=== PATIENT | female | born 2000 | race African-American/Black ===

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

== ENCOUNTER 2020-03-26 21:39 | Emergency (ER) | payer OTHER ==
[2020-03-26] MEDS ORDERED: ACETAMINOPHEN 325 MG TABLET PO ONE (21:46)
--- NOTE | 2020-03-26 21:48 | ER Document Report ---
ED Medical Screen (RME) - General Chief Complaint: OB Problem (<20wks) Stated Complaint: ABDOMINAL PAIN/6 WEEKS Time Seen by Provider: 03/26/20 21:43 Mode of Arrival: Ambulatory Information source: Patient Notes: HPI; 19-year-old female 1 states she is approximately 6 weeks presents to the emergency room complaining of abdominal cramping that started today. No nausea, no vomiting, no vaginal bleeding, no vaginal discharge. Has not had any OB care as of yet. Did not take any medications for her symptoms. PE: Alert and oriented x3. Lungs: Clear to auscultation without rales, rhonchi, wheezes. Heart: Regular rate rhythm without murmurs, rubs, gallops. Unable to do abdominal exam in triage. I have greeted and performed a rapid initial assessment of this patient. A comprehensive ED assessment and evaluation of the patient, analysis of test results and completion of the medical decision making process will be conducted by additional ED providers. I have specifically instructed the patient or family members with the patient to immediately return to any nursing staff should anything change in the patient's condition or with their chief complaint. TRAVEL OUTSIDE OF THE [place] IN LAST 30 DAYS: No - Related Data Allergies/Adverse Reactions: phenazopyridine [From Pyridium] Allergy (Verified 01/21/19 08:34) Home Medications: labatelol, iron, vitamins Past Medical History - Past Medical History Cardiac Medical History: Reports: Hx Hypertension Endocrine Medical History: Denies: Hx Diabetes Mellitus Type 1, Hx Diabetes Mellitus Type 2, Hx Hyperthyroidism, Hx Hypothyroidism Renal/ Medical History: Denies: Hx Ectopic , Hx End Stage Renal Disease, Hx Hemodialysis, Hx Kidney Stones, Hx Ovarian Cysts, Hx Peritoneal D ialysis, Hx Pelvic Inflammatory Disease Past Surgical History: Reports: Hx Myringotomy, Other - Cleft lip, cleft pallate surgery - Immunizations Immunizations up to date: Yes
[2020-03-26 22:38] LABS: ABSOLUTE BASOPHILS # (AUTO) 0.1 10^3/uL (0.0-0.2); ABSOLUTE EOSINOPHILS # (AUTO) 0.4 10^3/uL (0.0-0.6); ABSOLUTE LYMPHOCYTES (AUTO) 3.3 10^3/uL (0.5-4.7); ABSOLUTE NEUT (AUTO) 8.4 10^3/uL (1.7-8.2); BASOPHILS % (AUTO) 0.4 % (0-2); EOSINOPHILS % (AUTO) 3.1 % (0-6); HEMATOCRIT 41.3 % (36.0-47.0); HEMOGLOBIN 13.5 g/dL (12.0-15.5); LYMPHOCYTES % (AUTO) 25.4 % (13-45); MEAN CORPUSCULAR HEMOGLOBIN 23.6 pg (27.0-33.4); MEAN CORPUSCULAR HGB CONC 32.8 g/dL (32.0-36.0); MEAN CORPUSCULAR VOLUME 72 fl (80-97); MONOCYTES % (AUTO) 7.6 % (3-13); PLATELET COUNT 344 10^3/uL (150-450); RED BLOOD COUNT 5.73 10^6/uL (3.72-5.28); RED CELL DISTRIBUTION WIDTH 14.6 % (11.5-14.0); SEGMENTED NEUTROPHILS % (AUTO) 63.5 % (42-78); TOTAL CELLS COUNTED % (AUTO) 100 %; WHITE BLOOD COUNT 13.2 10^3/uL (4.0-10.5)
[2020-03-26 22:50] LABS: ALBUMIN 4.4 g/dL (3.7-5.6); ALKALINE PHOSPHATASE 94 U/L (50-135); ANION GAP 10 (5-19); ASPARTATE AMINO TRANSFERASE 20 U/L (5-30); BILIRUBIN,DIRECT 0.2 mg/dL (0.0-0.4); BILIRUBIN,TOTAL 0.3 mg/dL (0.2-1.3); BLOOD UREA NITROGEN 7 mg/dL (7-20); CALCIUM 9.3 mg/dL (8.4-10.2); CARBON DIOXIDE 23 mmol/L (22-30); CHLORIDE 104 mmol/L (98-107); GLUCOSE 113 mg/dL (75-110); TOTAL PROTEIN 7.7 g/dL (6.3-8.2)
[2020-03-26 23:06] LABS: APPEARANCE,URINE SLIGHTLY-CLOUDY; BILIRUBIN,URINE NEGATIVE (NEGATIVE); COLOR,URINE YELLOW; GLUCOSE, URINE NEGATIVE (NEGATIVE); KETONES,URINE NEGATIVE (NEGATIVE); LEUKOCYTE ESTERASE,URINE SMALL (NEGATIVE); NITRITE,URINE NEGATIVE (NEGATIVE); PROTEIN,URINE NEGATIVE (NEGATIVE); URINE SPECIFIC GRAVITY 1.018; UROBILINOGEN,URINE NEGATIVE mg/dL (<2.0)
--- NOTE | 2020-03-26 23:29 | RADIOLOGY REPORT (SQ) ---
EXAM DESCRIPTION: US TRANSVAGINAL COMPLETED DATE/TME: 03/26/2020 21:46 CLINICAL HISTORY: 19 years Female pain COMPARISON: None. TECHNIQUE: Transvaginal duplex imaging performed to evaluate the pelvis. FINDINGS: Cervix measures 2.7 cm and appears closed. Uterus measures 8.9 x 4.5 x 5.6 cm. Myometrium is mildly heterogeneous. Endometrium measures 1.6 cm. Right ovary measures 2.7 x 2.6 cm. Left ovary measures 3.1 x 1.6 cm. No IUP is noted. Normal ovarian blood flow noted. IMPRESSION: Thickened endometrium without IUP. Findings are consistent with of uncertain location. Recommend follow-up in one week
--- NOTE | 2020-03-27 03:44 | ER Document Report ---
ED GI/ - General Chief Complaint: OB Problem (<20wks) Stated Complaint: ABDOMINAL PAIN/6 WEEKS Time Seen by Provider: 03/26/20 21:43 Primary Care Provider: GIOVANI FAY PA-C [Primary Care Provider] - Follow up as needed Mode of Arrival: Ambulatory Notes: Patient is a 19-year-old female, at approximately 6 weeks gestation by last menstrual period, that comes to the emergency department for chief complaint of intermittent lower abdominal cramping that started today. Patient denies injury, vaginal bleeding or discharge, dysuria, flank pain, and she denies any current abdominal pain. She denies vomiting. She denies any other complaints. She states she had a confirmation with [place] [employer] [place] but she has not had an ultrasound yet. Patient is on iron, started vitamins already, denies medical history otherwise. TRAVEL OUTSIDE OF THE [place] IN LAST 30 DAYS: No - Related Data Allergies/Adverse Reactions: phenazopyridine [From Pyridium] Allergy (Verified 01/21/19 08:34) Home Medications: labatelol, iron, vitamins Past Medical History - General Information source: Patient - Social History Smoking Status: Never Smoker Frequency of alcohol use: None Drug Abuse: None Lives with: Family Family History: Reviewed & Not Pertinent - Past Medical History Cardiac Medical History: Reports: Hx Hypertension Endocrine Medical History: Denies: Hx Diabetes Mellitus Type 1, Hx Diabetes Mellitus Type 2, Hx Hyperthyroidism, Hx Hypothyroidism Renal/ Medical History: Denies: Hx Ectopic , Hx End Stage Renal Disease, Hx Hemodialysis, Hx Kidney Stones, Hx Ovarian Cysts, Hx Peritoneal Dialysis, Hx Pelvic Inflammatory Disease Past Surgical History: Reports: Hx Myringotomy, Other - Cleft lip, cleft pallate surgery - Immunizations Immunizations up to date: Yes Review of Systems - Review of Systems Constitutional: No symptoms reported EENT: No symptoms reported Cardiovascular: No symptoms reported Respiratory: No symptoms reported Gastrointestinal: See HPI Genitourinary: See HPI Female Genitourinary: See HPI Musculoskeletal: No symptoms reported Skin: No symptoms reported Hematologic/Lymphatic: No symptoms reported Neurological/Psychological: No symptoms reported Physical Exam - Vital signs Vitals: Temp Pulse Resp BP Pulse Ox 99 F 99 H 16 139/88 H 98 03/26/20 21:49 03/26/20 21:49 03/26/20 21:49 03/26/20 21:49 03/26/20 21:49 - Notes Notes: GENERAL: Alert, interacts well. No acute distress. HEAD: Normocephalic, atraumatic. EYES: Pupils equal, round, and reactive to light. Extraocular movements intact. ENT: Oral mucosa moist, tongue midline. Oropharynx unremarkable. Airway patent. LUNGS: Clear to auscultation bilaterally, no wheezes, rales, or rhonchi. No respiratory distress. Non-tender chest wall. HEART: Regular rate and rhythm. No murmur ABDOMEN: Soft, non-tender. Non-distended. Bowel sounds present in all 4 quadrants. GENITOURINARY: Deferred EXTREMITIES: Moves all 4 extremities spontaneously. No edema, normal radial and dorsalis pedis pulses bilaterally. No cyanosis. BACK: no cervical, thoracic, lumbar midline tenderness. No saddle anesthesia, normal distal neurovascular exam. Moves all extremities in full range of motion. NEUROLOGICAL: Alert and oriented x3. Normal speech. Cranial nerves II through XII grossly intact. Strength 5/5 in all extremities. PSYCH: Normal affect, normal mood. SKIN: Warm, dry, normal turgor. No rashes or lesions noted. Course - Re-evaluation Re-evalutation: Patient is talkative, laughing, smiling, well-appearing. She has no complaints on my evaluation. Exam is unremarkable except for borderline tachycardia although her heart rate is approximately 90s on my evaluation. CBC, chemistry unremarkable, urinalysis shows borderline urinary tract infection, culture placed, patient will be covered especially because she is . Ultrasound shows no visualized intrauterine but patient has no bleeding, no pain now, and her hCG is only in the 700s, I would not expect visualization at this stage. Nonspecific. I discussed details at length, provided with copy of data, discussed close [employer] TECHNICIAN follow-up, discussed return precautions. Patient states appreciation and agreement. Stable and well- appearing at time of discharge. - Vital Signs Vital signs: Temp Pulse Resp BP Pulse Ox 98.3 F 107 H 16 140/83 H 100 03/27/20 04:37 03/27/20 04:37 03/27/20 04:37 03/27/20 04:37 03/27/20 04:37 - Laboratory Result Diagrams: 03/26/20 22:19 03/26/20 22:19 Laboratory results interpreted by me: 03/26/20 03/26/20 03/26/20 22:19 22:19 22:19 WBC 13.2 H RBC 5.73 H MCV 72 L MCH 23.6 L RDW 14.6 H Absolute Neuts (auto) 8.4 H Sodium 136.9 L Glucose 113 H Beta HCG, Quant 787.86 H Ur Leukocyte Esterase SMALL H Urine Ascorbic Acid 40 H Discharge - Discharge Clinical Impression: Lower abdominal pain, Abdominal cramping affecting Condition: Stable Disposition: HOME, SELF-CARE Additional Instructions: Based on your evaluation the is very early, this is too early to see in the uterus on your evaluation. Please follow-up with [employer] TECHNICIAN and have a recheck in 3 to 7 days for additional monitoring and management. Based on your urinalysis and evaluation we are covering you for suspected urinary tract infection. Take the antibiotics as prescribed to completion. Return if you worsen including severe worsening pain, vaginal bleeding, fever, or any other concerning symptoms. Prescriptions: Cephalexin Monohydrate [Keflex 500 mg Capsule] 500 mg PO BID 5 Days #10 capsule Forms: Treatment of Relative/Child Referrals: GIOVANI FAY PA-C [Primary Care Provider] - Follow up as needed
[2020-03-27 04:38] VITALS: BP 140/83
== END 2020-03-27 04:44 | disposition home or self-care (01) ==
LOC: ER 21:39
DX: O26.899 Other specified pregnancy related conditions, unspecified trimester (principal); R10.30 Lower abdominal pain, unspecified; O16.9 Unspecified maternal hypertension, unspecified trimester; Z3A.00 Weeks of gestation of pregnancy not specified; Z79.899 Other long term (current) drug therapy; Z88.6 Allergy status to analgesic agent
CPT/HCPCS: 36415; 76817; 80053; 81001; 84702; 85025; 87086; 87088; 93976; 99284

== ENCOUNTER 2020-05-03 21:09 | Emergency (ER) | payer OTHER ==
[2020-05-03 21:18] VITALS: BP 132/83
[2020-05-03] MEDS ORDERED: ACETAMINOPHEN 325 MG TABLET PO ONE (21:28)
--- NOTE | 2020-05-03 21:28 | ER Document Report ---
ED Medical Screen (RME) - General Chief Complaint: Abdominal Cramping Stated Complaint: 3 MONTHS CRAMPS Time Seen by Provider: 05/03/20 21:18 Primary Care Provider: GIOVANI FAY PA-C [Primary Care Provider] - Follow up as needed Mode of Arrival: Ambulatory Information source: Patient Notes: 20-year-old female presents to ED for cramping to the right pelvic area for the last 3 to 4 hours. She states that she is 3 months 1 para 0. She states that she has never had pain this bad on the right side of her pelvis. She states she did have a ultrasound at 6 weeks gestation. She states she does know she has a be positive blood type. Patient is alert oriented respirations regular nonlabored speaking in full sentences. We will get blood urine and ultrasound and have seen by another provider. I have greeted and performed a rapid initial assessment of this patient. A comprehensive ED assessment and evaluation of the patient, analysis of test results and completion of medical decision making process will be conducted by an additional ED providers. TRAVEL OUTSIDE OF THE [place] IN LAST 30 DAYS: No - Related Data Allergies/Adverse Reactions: phenazopyridine [From Pyridium] Allergy (Verified 05/03/20 21:18) Home Medications: PRE-NATALS Past Medical History - Social History Frequency of alcohol use: None Drug Abuse: None - Past Medical History Cardiac Medical History: Reports: Hx Hypertension Endocrine Medical History: Denies: Hx Diabetes Mellitus Type 1, Hx Diabetes Mellitus Type 2, Hx Hyperthyroidism, Hx Hypothyroidism Renal/ Medical History: Denies: Hx Ectopic , Hx End Stage Renal Disease, Hx Hemodialysis, Hx Kidney Stones, Hx Ovarian Cysts, Hx Peritoneal Dialysis, Hx Pelvic Inflammatory Disease Past Surgical History: Reports: Hx Myringotomy, Other - Cleft lip, cleft pallate surgery - Immunizations Immunizations up to date: Yes Physical Exam - Vital signs Vitals: Temp Pulse Resp BP Pulse Ox 98.1 F 95 17 132/83 H 98 05/03/20 21:15 05/03/20 21:15 05/03/20 21:15 05/03/20 21:15 05/03/20 21:15 Course - Vital Signs Vital signs: Temp Pulse Resp BP Pulse Ox 98.1 F 95 17 132/83 H 98 05/03/20 21:15 05/03/20 21:15 05/03/20 21:15 05/03/20 21:15 05/03/20 21:15 Doctor's Discharge - Discharge Referrals: GIOVANI FAY PA-C [Primary Care Provider] - Follow up as needed
--- NOTE | 2020-05-03 22:33 | RADIOLOGY REPORT (SQ) ---
EXAM: First trimester OB ultrasound CLINICAL INDICATION: Right-sided pelvic pain. COMPARISON: OB ultrasound March 26, 2020 TECHNIQUE: First trimester OB ultrasound was performed. FINDINGS: Uterus: The uterus measures 13.2 x 7.4 x 5.8 cm. A single ovoid gestational sac is identified. The cervix is closed and measures 3.1 cm. Posterior to the gestational sac is a hypoechoic area in the uterus measuring 2.5 x 3.1 x 2.4 cm. This most likely represents a fibroid. Adjacent to the gestational sac is a hypoechoic area measuring 1.6 x 1.4 x 1.1 cm that may represent a. Gestational hemorrhage. A single pole is identified with a crown-rump length of 2.97 cm. This correlates with a gestational age of nine weeks six days. Estimated delivery date is 11/30/2020. Heart rate is noted at 163 bpm Ovaries and adnexa: The right ovary measures 30.7 x 2.9 x 1.9 cm. There is a hypoechoic area which measures 1.9 x 1.4 x 1.4 cm it most likely represents a corpus luteal cyst. Color flow is seen in the ovary. Spectral analysis was not performed. The left ovary is obscured by overlying bowel gas. IMPRESSION: 1. Single living intrauterine with estimated gestational age of nine weeks six days and estimated delivery dated 11/30/2020. 2. Small amount of hemorrhage seen adjacent to the gestational sac. 3. Probable uterine fibroid. 4. Right-sided corpus luteal cyst. Nonvisualization of the left ovary.
== END 2020-05-03 22:50 | disposition left against medical advice (07) ==
LOC: ER 21:09
DX: O26.91 Pregnancy related conditions, unspecified, first trimester (principal); R10.2 Pelvic and perineal pain; Z3A.09 9 weeks gestation of pregnancy
CPT/HCPCS: 76801; 99281